=== PATIENT | female | born 1960 | race Caucasian/White ===

== ENCOUNTER 2018-01-10 12:17 | Emergency (ER) | payer MEDICAID, OTHER ==
--- NOTE | 2018-01-10 12:42 | EDPHY ---
H & P Time Seen by Provider: 01/10/18 12:38 HPI/ROS: CHIEF COMPLAINT: Medication refill request HISTORY OF PRESENT ILLNESS: Patient is from [place] and here without her psychiatric medication requesting medication refills. She is requesting refill of Seroquel and Elavil. She denies any suicidal or homicidal ideation. She does report increased anxiety. She has been out of her medication for a few days. ROS As detailed in HPI Smoking Status: Never smoked Physical Exam: General: Alert and oriented. Nontoxic appearing. No acute distress HEENT: Pupils PERRLA. No oral lesions. Cardiopulmonary: Regular rate and rhythm. No lower extremity edema Skin: [place] warm and dry. No lesions. Muscle skeletal: Moving all 4 extremities. Equal strength in upper extremities and lower extremities. Ambulatory. Constitutional: Initial Vital Signs Temperature (C) 36.4 C 01/10/18 12:31 Heart Rate 87 01/10/18 12:31 Respiratory Rate 18 01/10/18 12:31 Blood Pressure 135/113 H 01/10/18 12:31 O2 Sat (%) 96 01/10/18 12:31 O2 Delivery Mode Room Air Allergies/Adverse Reactions: No Known Allergies Allergy (Unverified 01/10/18 12:35) Home Medications: Medication Instructions Recorded Amitriptyline HCl [Elavil 100 MG 100 mg PO HS #30 tab 01/10/18 (*)] Elavil 01/10/18 Quetiapine Fumarate [Seroquel] 800 mg PO DAILY #60 tablet 01/10/18 Seroquel 01/10/18 hydrOXYzine HCL [hydrOXYzine HCL 25 mg PO Q6 #12 tab 01/10/18 (RX)] Medical Decision Making ED Course/Re-evaluation: Patient here requesting refill for psychiatric medications. She was prescribed her known doses which she provides the bottle of. Indications for ER return or discussed. She was referred to outpatient therapy. Departure - Departure Disposition: Home, Routine, Self-Care Clinical Impression: Medication refill Condition: Good Instructions: Bipolar Disorder (ED) Referrals: NONE *PRIMARY CARE P,. [Primary Care Provider] - As per Instructions [facility],. [Clinic] - As per Instructions Prescriptions: Amitriptyline HCl [Elavil 100 MG (*)] 100 mg PO HS #30 tab hydrOXYzine HCL [hydrOXYzine HCL (RX)] 25 mg PO Q6 #12 tab Quetiapine Fumarate [Seroquel] 800 mg PO DAILY #60 tablet
[2018-01-10 12:54] VITALS: BP 149/102
== END 2018-01-10 12:55 | disposition home or self-care (01) ==
DX: Z76.0 Encounter for issue of repeat prescription (principal); F41.9 Anxiety disorder, unspecified

== ENCOUNTER 2018-01-16 20:27 | Emergency (ER) | payer MEDICAID ==
[2018-01-16] MEDS ORDERED: PANTOPRAZOLE SODIUM 40 MG VIAL IVP ONE (20:35)
[2018-01-16] MEDS ORDERED: HYOSCYAMINE SULFATE 0.125 MG TAB PO ONE (20:35)
[2018-01-16] MEDS ORDERED: LIDOCAINE 2% VISCOUS 15 ML UDCUP PO ONE (20:35)
[2018-01-16] MEDS ORDERED: NS 1,000 ML IV ONE (20:35)
[2018-01-16] MEDS ORDERED: PROMETHAZINE HCL 25 MG/ML INJ IVP ONE (20:35)
[2018-01-16] MEDS ORDERED: MAG HYDROX/AL HYDROX/SIMETH 30 ML UDCUP PO ONE (20:35)
[2018-01-16] MEDS ORDERED: FAMOTIDINE 20 MG/NACL 50 ML IV ONE (20:35)
[2018-01-16] MEDS ORDERED: LORazepam 2 MG/ML INJ IVP ONE (20:36)
--- NOTE | 2018-01-16 20:36 | EDPHY ---
H & P Stated Complaint: Vomitting blood, mid abd pain, has stomach ulcer- no meds Source: Patient Exam Limitations: No limitations - Personal History Current Tetanus Diphtheria and Acellular Pertussis (TDAP): No - Medical/Surgical History Hx Asthma: No Hx Chronic Respiratory Disease: No Hx Diabetes: No Hx Cardiac Disease: No Hx Renal Disease: No Hx Cirrhosis: No Hx Alcoholism: No Hx HIV/AIDS: No Hx Splenectomy or Spleen Trauma: No Other PMH: Bipolar, IBS - Social History Smoking Status: Never smoked Time Seen by Provider: 01/16/18 20:33 HPI/ROS: HPI: This is a 57-year-old female who presents with Chief Complaint: Vomiting blood, mid abd pain, has stomach ulcer- no meds Location: Epigastric and periumbilical area Quality: Pain Duration: 1 day Signs and Symptoms: no fever, no nausea, + vomiting, + blood tinged vomit, no blood in stool, no abdominal bloating, no diarrhea, no back pain, no urinary symptoms, no vaginal bleeding/discharge, no indigestion, no chest pain, no shortness of breath Timing: Acute Severity: Moderate Context: Patient has a history of bipolar disorder, irritable bowel syndrome, stomach ulcer diagnosed as a child presents yelling and crying while walking back from triage into the ER room. Patient reports that she is extremely stressed out taking care of her doctor mother who has Alzheimer's dementia. She reports that she " just can't get the stress under control today." She takes Pepcid as needed. She reports that she has felt nauseous and has vomited approximately 2-5 times today she reports that she saw a blood tinged. Vomit she complains of epigastric and periumbilical abdominal pain that is severe and constant in nature. She has loose stools every day which is baseline for her. She denies any abdominal surgery history. She has no food intolerance, indigestion, recent alcohol or NSAID use. Modifying Factors: None Comment: ROS: A comprehensive 10 system review of systems is otherwise negative aside from elements mentioned in the history of present illness. MEDICAL/SURGICAL/SOCIAL HISTORY: Medical history: Bipolar, irritable bowel syndrome, stomach ulcer Surgical history: Denies Social history: Nonsmoker. Family history noncontributory. CONSTITUTIONAL: Patient is extremely anxious and speaking loudly and thrashing around in the room, awake and alert, no obvious distress HEENT: Atraumatic and normocephalic, PERRL, EOMI. Nares patent; no rhinorrhea; no nasal mucosal edema. Tympanic membranes clear. Oropharynx clear, no exudate and moist pink mucosa. Airway patent. No lymphadenopathy. No meningismus. Cardiovascular: Normal S1/S2, regular rate, regular rhythm, without murmur rub or gallop. PULMONARY/CHEST: Symmetrical and nontender. Clear to auscultation bilaterally. Good air movement. No accessory muscle usage. ABDOMEN: Soft, obesely rounded, epigastric and periumbilical reproducible tenderness, no rebound, + guarding, no peritoneal signs, no masses or organomegaly. No CVAT. Sounds heard x4 quadrants. EXTREMITIES: 2/2 pulses, strength 5/5, no deformities, no clubbing, no cyanosis or edema. NEUROLOGICAL: no focal neuro deficits. GCS 15. SKIN: Warm and dry, no erythema. no rash. Good capillary refill. (Ramandeep Santiago) Constitutional: Initial Vital Signs Temperature (C) 36.8 C 01/16/18 20:29 Heart Rate 97 01/16/18 20:29 Respiratory Rate 18 01/16/18 20:29 Blood Pressure 137/55 H 01/16/18 20:29 O2 Sat (%) 94 01/16/18 20:29 O2 Delivery Mode Room Air Allergies/Adverse Reactions: No Known Allergies Allergy (Unverified 01/16/18 20:29) Home Medications: Medication Instructions Recorded Amitriptyline HCl [Elavil 100 MG 100 mg PO HS #30 tab 01/10/18 (*)] Elavil 01/10/18 Quetiapine Fumarate [Seroquel] 800 mg PO DAILY #60 tablet 01/10/18 Seroquel 01/10/18 hydrOXYzine HCL [hydrOXYzine HCL 25 mg PO Q6 #12 tab 01/10/18 (RX)] Dicyclomine [Bentyl 10 MG (*)] 10 mg PO TID PRN #10 cap 01/16/18 Ondansetron Odt [Zofran Odt 4 mg 4 mg PO Q4 PRN #12 tab 01/16/18 (*)] Pantoprazole Sodium [Protonix 40mg 40 mg PO DAILY #14 tab 10/18/18 (*)] Medical Decision Making ED Course/Re-evaluation: Vital signs reviewed and stable upon arrival. Laboratory studies, IV fluids, IV medications, CT abdomen and pelvis scan ordered Patient given IV Protonix, IV Pepcid, IV Ativan and GI cocktail 2220: Labs reviewed. No signs of anemia/platelet dysfunction/RAHUL/elevated LFTs /electrolyte imbalance/pancreatitis. Mild leukocytosis of 12 K noted. Called by Radiology CT abdomen and pelvis scan shows Nonspecific thickening of the transverse duodenum and ligament of [place] region of the jejunum. 2. Distal colon suspicious for remote colitis. 2240: Reassessed patient and abdomen soft and nontender. Passed p.o. Trial without any difficulty. Suspect anxiety, gastritis, irritable bowel syndrome. Referral to Gastroenterology with prescription for Protonix and Bentyl. This patient was seen under the supervision of my secondary supervising physician. I evaluated care for this patient independently. Discussed this patient with Dr. Robison. (Ramandeep Santiago) Differential Diagnosis: Abdominal pain including but not limited to appendicitis, cholecystitis, gastritis and urinary tract infection. (Ramandeep Santiago) Other Provider: The patient was evaluated and managed by the Physician Neighborhood Conservation Officer. I did not discuss this patient's presentation with the midlevel provider. I did review the charts and evaluation as documented. My co-signature indicates that I have reviewed this chart and I agree with the findings and plan of care as documented. I am the secondary supervising physician. (Rosa Robison) - Data Points Laboratory Results: Laboratory Results 01/16/18 20:35 01/16/18 20:35 Medications Given: Discontinued Medications Al Hydroxide/Mg Hydroxide (Maalox Susp) 30 ml PO ONCE ONE Stop: 01/16/18 20:36 Last Admin: 01/16/18 21:01 Dose: 30 ml Hyoscyamine Sulfate (Levsin, Hyomax-Sl) 0.25 mg PO ONCE ONE Stop: 01/16/18 20:36 Last Admin: 01/16/18 21:01 Dose: 0.25 mg Sodium Chloride (Ns) 1,000 mls @ 0 mls/hr IV EDNOW ONE; Wide Open PRN Reason: Protocol Stop: 01/16/18 20:36 Last Admin: 01/16/18 21:51 Dose: 1,000 mls Famotidine/Sodium Chloride (Pepcid 20 Mg (Premix)) 50 mls @ 200 mls/hr IV EDNOW ONE Stop: 01/16/18 20:49 Last Admin: 01/16/18 21:58 Dose: 50 mls Lidocaine (Lidocaine 2% Viscous) 15 ml PO ONCE ONE Stop: 01/16/18 20:36 Last Admin: 01/16/18 21:01 Dose: 15 ml Lorazepam (Ativan Injection) 1 mg IVP EDNOW ONE Stop: 01/16/18 20:37 Last Admin: 01/16/18 21:56 Dose: 1 mg Pantoprazole Sodium (Protonix) 40 mg IVP ONCE ONE Stop: 01/16/18 20:36 Last Admin: 01/16/18 22:34 Dose: 40 mg Promethazine HCl (Phenergan) 12.5 mg IVP EDNOW ONE Stop: 01/16/18 20:36 Last Admin: 01/16/18 21:52 Dose: 12.5 mg Departure - Departure Disposition: Home, Routine, Self-Care Clinical Impression: IBS (irritable bowel syndrome) Condition: Good Instructions: Gastritis (ED), Irritable Bowel Syndrome (ED) Additional Instructions: Consume a minimum of 8-10 glasses of water or electrolyte fluid replacement drinks that include Gatorade, Powerade, Pedialyte. Eat a bland diet for the next 48 hours and then slowly advance as tolerated. Take Zofran 1 tab every 4 hours as needed for nausea, vomiting. Take Protonix daily. Take Bentyl 3 times a day as needed for GI distress. Please refrain from using NSAIDs like ibuprofen, Advil, Motrin. Follow-up with Gastroenterology in the next 1-2 weeks. Return to the Emergency Room if symptoms do not resolve in the next 48-72 hours , you spike a fever > 102 F, or experience intractable abdominal pain/nausea/ vomiting. Referrals: Jonel Cash MD, FACG [Medical Doctor] - As per Instructions Prescriptions: Dicyclomine [Bentyl 10 MG (*)] 10 mg PO TID PRN #10 cap PRN Reason: Gi Distress Ondansetron Odt [Zofran Odt 4 mg (*)] 4 mg PO Q4 PRN #12 tab PRN Reason: Nausea/Vomiting, Use 1st Pantoprazole Sodium [Protonix 40mg (*)] 40 mg PO DAILY #14 tab
[2018-01-16] MEDS ORDERED: IOPAMIDOL (ISOVUE-300) 100 ML BTL ONE (21:02)
[2018-01-16 21:44] LABS: PLATELET COUNT 236 10^3/uL (150-400)
[2018-01-16] MEDS ORDERED: PANTOPRAZOLE SODIUM 40 MG VIAL ONE (22:32)
[2018-01-16 23:08] VITALS: BP 123/76
[2018-01-17] MEDS ORDERED: PANTOPRAZOLE SODIUM 40 MG VIAL IVP ONE (20:35)
== END 2018-01-16 23:08 | disposition home or self-care (01) ==
DX: K58.9 Irritable bowel syndrome, unspecified (principal); K92.0 Hematemesis; F31.9 Bipolar disorder, unspecified
CPT/HCPCS: 96365; 96366; J2060; J2550; Q9967

== ENCOUNTER 2018-01-23 13:30 | Emergency (ER) | payer MEDICAID ==
[2018-01-23 13:36] VITALS: BP 144/131
--- NOTE | 2018-01-23 13:51 | EDPHY ---
H & P Stated Complaint: PS med refill Time Seen by Provider: 01/23/18 13:40 HPI/ROS: CHIEF COMPLAINT: Medication refill HISTORY OF PRESENT ILLNESS: The patient is a 57-year-old female who recently moved here from [place]. She has a history of bipolar and IBS. She states that she does not have a psychiatrist in the area yet. She is here requesting refills of her Elavil and Seroquel. She was here 2 weeks ago with the same request. At that time she was written for 30 tablets of Elavil and 60 tablets of Seroquel. She states however that she took this to the pharmacy and they would only fill 5 days worth. She is not having any new or worsening symptoms. She is not suicidal. No fevers or illness. Severity: None Modifying factors: None REVIEW OF SYSTEMS: Constitutional: denies: chills, fever, recent illness, recent injury EENTM: denies: blurred vision, double vision, nose congestion Respiratory: denies: cough, shortness of breath Cardiac: denies: chest pain, irregular heart rate, lightheadedness, palpitations Gastrointestinal/Abdominal: denies: abdominal pain, diarrhea, nausea, vomiting, blood streaked stools Genitourinary: denies: dysuria, frequency, hematuria, pain Musculoskeletal: denies: joint pain, muscle pain Skin: denies: lesions, rash, jaundice, bruising Neurological: denies: headache, numbness, paresthesia, tingling, dizziness, weakness Hematologic/Lymphatic: denies: blood clots, easy bleeding, easy bruising Immunologic/allergic: denies: HIV/AIDS, transplant 10 systems reviewed and negative except as noted EXAM: GENERAL: Well-appearing, well-nourished and in no acute distress. HEAD: Atraumatic, normocephalic. EYES: Pupils equal round and reactive to light, extraocular movements intact, sclera anicteric, conjunctiva are normal. ENT: TMs normal, nares patent, oropharynx clear without exudates. Moist mucous membranes. NECK: Normal range of motion, supple without lymphadenopathy or JVD. LUNGS: Breath sounds clear to auscultation bilaterally and equal. No wheezes rales or rhonchi. HEART: Regular rate and rhythm without murmurs, rubs or gallops. ABDOMEN: Soft, nontender, normoactive bowel sounds. No guarding, no rebound. No masses appreciated. BACK: No CVA tenderness, no spinal tenderness, step-offs or deformities EXTREMITIES: Normal range of motion, no pitting or edema. No clubbing or cyanosis. NEUROLOGICAL: Cranial nerves II through XII grossly intact. Normal speech, normal gait. 5/5 strength, normal movement in all extremities, normal sensation , normal reflexes PSYCH: Normal mood, normal affect. SKIN: Warm, dry, normal turgor, no visible rashes or lesions. Source: Patient, Family Exam Limitations: No limitations - Personal History Current Tetanus/Diphtheria Vaccine: No - Medical/Surgical History Hx Asthma: No Hx Chronic Respiratory Disease: No Hx Diabetes: No Hx Cardiac Disease: No Hx Renal Disease: No Hx Cirrhosis: No Hx Alcoholism: No Hx HIV/AIDS: No Hx Splenectomy or Spleen Trauma: No Other PMH: Bipolar, IBS - Family History Significant Family History: No pertinent family hx - Social History Smoking Status: Never smoked Alcohol Use: Sober Drug Use: None Constitutional: Initial Vital Signs Temperature (C) 36.6 C 01/23/18 13:34 Heart Rate 93 01/23/18 13:34 Respiratory Rate 18 01/23/18 13:34 Blood Pressure 144/131 H 01/23/18 13:34 O2 Sat (%) 93 01/23/18 13:34 O2 Delivery Mode Room Air Allergies/Adverse Reactions: No Known Allergies Allergy (Unverified 01/23/18 13:36) Home Medications: Medication Instructions Recorded Amitriptyline HCl [Elavil 100 MG 100 mg PO HS #30 tab 01/10/18 (*)] Elavil 01/10/18 Quetiapine Fumarate [Seroquel] 800 mg PO DAILY #60 tablet 01/10/18 Seroquel 01/10/18 hydrOXYzine HCL [hydrOXYzine HCL 25 mg PO Q6 #12 tab 01/10/18 (RX)] Dicyclomine [Bentyl 10 MG (*)] 10 mg PO TID PRN #10 cap 01/16/18 Ondansetron Odt [Zofran Odt 4 mg 4 mg PO Q4 PRN #12 tab 01/16/18 (*)] Pantoprazole Sodium [Protonix 40mg 40 mg PO DAILY #14 tab 01/16/18 (*)] Omeprazole 40 mg PO HS #30 capsule. 01/23/18 Medical Decision Making ED Course/Re-evaluation: 1:50 p.m. we are calling pharmacy to verify whether or not they filled her complete prescription. She should not need a refill at this time. I will also refer her to [facility] where she can see a prescriber sooner. 2:00 p.m. We called and spoke to Sharath. They report that they did did not completely fill the patient's medication 2 weeks ago because she had overlapping prescriptions and it was too early for insurance reasons. Now however it should be available and they have the prescriptions on file. I do not need write her new prescriptions. The patient understands this plan and declines further treatment. She is eager to go. 2:20 p.m. the patient is requesting a prescription for omeprazole so that insurance will cover it. Differential Diagnosis: Partial list of the Differential diagnosis considered include but were not limited to; bipolar, medication refill, diversion and although unlikely based on the history and physical exam, I also considered anxiety reaction, infection. I discussed these differential diagnoses and the plan with the patient as well as the usual and expected course. The patient understands that the diagnosis is provisional and that in medicine we are not always correct and that further workup is often warranted. Usual and customary warnings were given. All of the patient's questions were answered. The patient was instructed to return to the emergency department should the symptoms at all worsen or return, otherwise to followup with the physician as we discussed. Departure - Departure Disposition: Home, Routine, Self-Care Clinical Impression: Medication refill Condition: Good Instructions: Medicine Refill (ED) Referrals: NONE *PRIMARY CARE P,. [Primary Care Provider] - As per Instructions [facility],. [Clinic] - As per Instructions Prescriptions: Omeprazole 40 mg PO HS #30 capsule.
== END 2018-01-23 14:23 | disposition home or self-care (01) ==
DX: Z76.0 Encounter for issue of repeat prescription (principal); F31.9 Bipolar disorder, unspecified; K58.9 Irritable bowel syndrome, unspecified

== ENCOUNTER 2018-02-10 11:03 | Emergency (ER) | payer MEDICAID ==
[2018-02-10 11:17] VITALS: BP 137/96
--- NOTE | 2018-02-10 11:51 | EDPHY ---
H & P Stated Complaint: psych med refill Time Seen by Provider: 02/10/18 11:33 - Personal History Current Tetanus/Diphtheria Vaccine: Unsure Current Tetanus Diphtheria and Acellular Pertussis (TDAP): Unsure - Medical/Surgical History Hx Asthma: No Hx Chronic Respiratory Disease: No Hx Diabetes: No Hx Cardiac Disease: No Hx Renal Disease: No Hx Cirrhosis: No Hx Alcoholism: No Hx HIV/AIDS: No Hx Splenectomy or Spleen Trauma: No Other PMH: Bipolar, IBS - Social History Smoking Status: Current every day smoker Constitutional: Initial Vital Signs Temperature (C) 36.7 C 02/10/18 11:15 Heart Rate 86 02/10/18 11:15 Respiratory Rate 16 02/10/18 11:15 Blood Pressure 137/96 H 02/10/18 11:15 O2 Sat (%) 96 02/10/18 11:15 O2 Delivery Mode Room Air Allergies/Adverse Reactions: No Known Allergies Allergy (Unverified 02/10/18 11:13) Home Medications: Medication Instructions Recorded Amitriptyline HCl [Elavil 100 MG 100 mg PO HS #30 tab 01/10/18 (*)] Elavil 01/10/18 Quetiapine Fumarate [Seroquel] 800 mg PO DAILY #60 tablet 01/10/18 Seroquel 01/10/18 Dicyclomine [Bentyl 10 MG (*)] 10 mg PO TID PRN #10 cap 01/16/18 Ondansetron Odt [Zofran Odt 4 mg 4 mg PO Q4 PRN #12 tab 01/16/18 (*)] Omeprazole 40 mg PO HS #30 john. 01/23/18 Amitriptyline HCl [Elavil 100 MG 100 mg PO HS #30 tab 02/10/18 (*)] Medical Decision Making ED Course/Re-evaluation: CHIEF COMPLAINT: Psych medication refill HISTORY OF PRESENT ILLNESS: The patient is a 57 y/o female with a history of bipolar disorder requesting psych medication refill. She reports that she sees a psychiatrist in [place] but has been staying with her elderly parents who have Alzheimer for the last several weeks. Since she has been in [place], she has run out of Elavil , which she takes daily. No headache, chest pain, shortness of breath, abdominal pain, urinary or bowel complaints, numbness, paresthesias, fevers. REVIEW OF SYSTEMS: A comprehensive 10 system review of systems is otherwise negative aside from elements mentioned in the history of present illness and medical decision making. PHYSICAL EXAM: HR, BP, O2 Sat, RR. Temp noted General Appearance: Alert, well hydrated, appropriate, and non-toxic appearing. Head: Atraumatic without scalp tenderness or obvious injury Eyes: Pupils equal, round, reactive to light and accommodation, EOMI, no trauma , no injection. Ears: Clear bilaterally, no perforation, normal landmarks Nose: Atraumatic, no rhinorrhea, clear. Throat: There is no erythema or exudates, no lesions, normal tonsils, mucus membranes moist. Neck: Supple, 2+ carotid upstroke, nontender, no lymphadenopathy. Respiratory: No retractions, no distress, no wheezes, and no accessory muscle use. Lungs are clear to auscultation bilaterally. Cardiovascular: Regular rate and rhythm, no murmurs, rubs, or gallops. Bilateral carotid, radial, dorsalis pedis, and posterior tibial pulses intact. Good capillary refill all extremities. Gastrointestinal: Abdomen is soft, nontender, non-distended, no masses, no rebound, no guarding, no peritoneal signs. Musculoskeletal: Normal active ROM of all extremities, atraumatic. Neurological: Alert, appropriate, and interactive. The patient has normal DTRs and non-focal cranial nerves, motor, sensory, and cerebellar exam. Skin: No rashes, good turgor, no nodules on palpation. Past medical history: Bipolar disorder, IBS Past surgical history: Denies Family history: Denies Social history: Lives in [place], , not employed DIAGNOSTICS/PROCEDURES/CRITICAL CARE TIME: Not indicated DIFFERENTIAL DIAGNOSIS: The differential diagnosis for the patient's mental status included but was not limited to medication noncompliance, functional and major depression, situational depression, medication side effect, drugs, and alcohol abuse. MEDICAL DECISION MAKING: The patient is a 57 y/o female with a history of bipolar disorder requesting an Elavil refill, as she has run out while caring for her elderly parents. I will fill this patient's Elavil and have advised her to follow up with her mental health provider. Return precautions provided; patient is comfortable with this plan. Departure - Departure Disposition: Home, Routine, Self-Care Clinical Impression: Medication refill Condition: Good Instructions: Medicine Refill (ED) Additional Instructions: 1. Take Elavil as prescribed. 2. Follow-up with your mental health provider as directed. 3. Return to the ED for thoughts of self-harm, racing thoughts or other concerns. Referrals: [facility],. [Clinic] - As per Instructions Prescriptions: Amitriptyline HCl [Elavil 100 MG (*)] 100 mg PO HS #30 tab Report Scribed for: Chet Harris Report Scribed by: Sruthi Khan Date of Report: 02/10/18 Time of Report: 11:52
== END 2018-02-10 12:05 | disposition home or self-care (01) ==
DX: F31.9 Bipolar disorder, unspecified (principal); Z79.899 Other long term (current) drug therapy; F17.200 Nicotine dependence, unspecified, uncomplicated

== ENCOUNTER 2018-05-24 14:48 | Emergency (ER) | payer MEDICAID, OTHER ==
--- NOTE | 2018-05-24 15:08 | EDPHY ---
H & P Stated Complaint: pt here helping mother/has run out of elavil and seroquel has appt 05/27 Time Seen by Provider: 05/24/18 15:04 HPI/ROS: HPI: This is a 57-year-old female who presents with Chief Complaint: pt here helping mother/has run out of Elavil and Seroquel has appt 05/27 Location: psych Quality: Request of psychiatric medication refill Duration: Signs and Symptoms: No suicidal ideation, no homicidal ideation, no paranoia, no hallucinations Timing: Acute on chronic Severity: Mild Context: Patient has a history of bipolar, irritable bowel syndrome, anxiety presents with request of psychiatric medication refill. She reports that she ran out of Elavil and Seroquel. She normally takes Elavil 100 mg and Seroquel 800 mg daily. Patient is in the area helping her mother. She shows me as she that has [facility] counselor appointment on May 27 and psychiatrist appointment on July 04. Modifying Factors: None Comment: ROS: A comprehensive 10 system review of systems is otherwise negative aside from elements mentioned in the history of present illness. MEDICAL/SURGICAL/SOCIAL HISTORY: Medical history: Bipolar, IBS, anxiety Surgical history: Denies Social history: Current every day smoker. Family history noncontributory. CONSTITUTIONAL: Slightly anxious middle-aged white female, awake and alert, no obvious distress HEENT: Atraumatic and normocephalic, PERRL, EOMI. Nares patent; no rhinorrhea; no nasal mucosal edema. Tympanic membranes clear. Oropharynx clear, no exudate and moist pink mucosa. Airway patent. No lymphadenopathy. No meningismus. Cardiovascular: Normal S1/S2, regular rate, regular rhythm, without murmur rub or gallop. PULMONARY/CHEST: Symmetrical and nontender. Clear to auscultation bilaterally. Good air movement. No accessory muscle usage. ABDOMEN: Soft, nondistended, nontender, no rebound, no guarding, no peritoneal signs, no masses or organomegaly. No CVAT. EXTREMITIES: 2/2 pulses, strength 5/5, no deformities, no clubbing, no cyanosis or edema. NEUROLOGICAL: no focal neuro deficits. GCS 15. SKIN: Warm and dry, no erythema. no rash. Good capillary refill. Source: Patient, Old records Exam Limitations: No limitations - Personal History Current Tetanus Diphtheria and Acellular Pertussis (TDAP): No - Medical/Surgical History Hx Asthma: No Hx Chronic Respiratory Disease: No Hx Diabetes: No Hx Cardiac Disease: No Hx Renal Disease: No Hx Cirrhosis: No Hx Alcoholism: No Hx HIV/AIDS: No Hx Splenectomy or Spleen Trauma: No Other PMH: Bipolar, IBS anxiety - Social History Smoking Status: Current every day smoker Constitutional: Initial Vital Signs Temperature (C) 36.5 C 05/24/18 14:53 Heart Rate 91 05/24/18 14:53 Respiratory Rate 17 05/24/18 14:53 Blood Pressure 133/101 H 05/24/18 14:53 O2 Sat (%) 98 05/24/18 14:53 O2 Delivery Mode Room Air Allergies/Adverse Reactions: No Known Allergies Allergy (Verified 05/24/18 14:49) Home Medications: Medication Instructions Recorded Amitriptyline HCl [Elavil 100 MG 100 mg PO HS #30 tab 01/10/18 (*)] Elavil 01/10/18 Quetiapine Fumarate [Seroquel] 800 mg PO DAILY #60 tablet 01/10/18 Seroquel 01/10/18 Dicyclomine [Bentyl 10 MG (*)] 10 mg PO TID PRN #10 cap 01/16/18 Ondansetron Odt [Zofran Odt 4 mg 4 mg PO Q4 PRN #12 tab 01/16/18 (*)] Omeprazole 40 mg PO HS #30 capsule. 01/23/18 Amitriptyline HCl [Elavil 100 MG 100 mg PO HS #30 tab 02/10/18 (*)] Amitriptyline HCl [Elavil 100 MG 100 mg PO HS #60 tab 02/24/18 (*)] Omeprazole 40 mg PO DAILY #30 capsule. 02/24/18 Quetiapine Fumarate [Seroquel] 800 mg PO DAILY #60 tablet 02/24/18 Amitriptyline HCl [Elavil 100 MG 100 mg PO HS #7 tab 05/24/18 (*)] Quetiapine Fumarate [Seroquel Xr] 800 mg PO DAILY 7 Days tab.sr.24h 05/24/18 Medical Decision Making ED Course/Re-evaluation: Vital signs reviewed and show mildly elevated blood pressure upon arrival. Does not meet M1 hold or MIH criteria Case management consult. Estefany confirmed patient's appointment date and time with [facility]. They will try to get patient in next week. She arranged follow-up appointment at the [facility] [place] to establish care. Patient has been given 7 days of Elavil 100 mg daily and Seroquel 100 mg daily. This patient was seen under the supervision of my secondary supervising physician. I evaluated care for this patient with attending. Discussed this patient with Dr. Harris. Differential Diagnosis: Differential diagnosis includes but is not limited to major depression, anxiety disorder, schizophrenia, bipolar disorder, intoxicant use, suicidal ideation, psychosis, jamia. Departure - Departure Disposition: Home, Routine, Self-Care Clinical Impression: Has run out of medications Condition: Good Instructions: Bipolar Disorder (ED) Referrals: [facility],. [Clinic] - As per Instructions [facility],. [Clinic] - As per Instructions Prescriptions: Amitriptyline HCl [Elavil 100 MG (*)] 100 mg PO HS #7 tab Quetiapine Fumarate [Seroquel Xr] 800 mg PO DAILY 7 Days tab.sr.24h
[2018-05-24 16:17] VITALS: BP 130/98
--- NOTE | 2018-05-24 17:29 | ASMTCMCOM ---
CM Note CM Note Notes: Pt presented to the ED through triage for refill Rxns for her Seroquel and Elavil. This is the pt's 5th ED visit for the same reason since 01/10/18. Pt states she has completed the initial assessment [facility] and has an appt w/ a therapist at [facility] on 05/27/18 but that the earliest appt w/a prescriber is not until 07/04/18; pt presented [facility] paperwork that showed the upcoming appts. Pt states she recently moved to [place] from [place] in Dec 2017 to help care for her mother who has Alzheimer's; pt is living with her mother and father. Pt states her psychiatrist in [facility] was able to call in refills a couple of times but now he is not able/willing to continue doing so. Pt was last seen in the ED on 02/24/18 and she was provided 2 months worth of Seroquel and Elavil Rxns. Pt states she was also able to get through the past month or so because she was able to get back to [facility] and retrieve her previously filled supply of her medications. CM called [facility] at [facility] ([phone]) and spoke w/Lucie. Pt spoke w/Lucie and gave verbal permission for Lucie to discuss pt's care with this CM. Spoke w/Lucie and explained that the ED provider would only be willing to provide the pt w/one week's worth of her Rxns due to pt's frequent ED visits specifically for med refills. Lucie states she will e-mail pt's assigned therapist and psychiatric practitioner and see if they can expedite providing additional Rxn refills for the pt this upcoming week. Pt states she is already established w/[facility] and is followed by D[facility] Garcia. Lucie also states she will request that PC provide additional bridge Rxns for the patient until she can see a prescriber. Pt was frustrated intermittently throughout the ED visit but overall pt was agreeable to this plan and appreciative of assistance. This CM to follow-up w/[facility], [facility] and the pt on Saturday re:pt's outpatient follow-up / POC. Date Signed: 05/24/2018 05:28 PM Electronically Signed By:Estefany Sebastian RN
== END 2018-05-24 16:10 | disposition home or self-care (01) ==
DX: Z76.0 Encounter for issue of repeat prescription (principal)

== ENCOUNTER 2018-07-11 09:29 | Emergency (ER) | payer MEDICAID ==
--- NOTE | 2018-07-11 09:41 | EDPHY ---
H & P Stated Complaint: IBS flare up Time Seen by Provider: 07/11/18 09:40 HPI/ROS: HPI: This is a 57-year-old female who presents with Chief Complaint: No bowel movement x3 days Location: GI Quality: Constipation Duration: 3 days Signs and Symptoms: no fever, + nausea, + vomiting, no hematemesis, no blood in stool, no abdominal bloating, no diarrhea, no back pain, no urinary symptoms, no vaginal bleeding/discharge, no indigestion, no chest pain, no shortness of breath Timing: Gradual onset Severity: [id number] Context: Patient has a history of bipolar disease, takes Seroquel 100 mg daily , has a history of constipation, presents with complaints of no bowel movement x3 days. She reports that she sat on the toilet for approximately an hour and half this morning and tried to strain but only had small amount of so hard stool "come out." She tried [id number] Ex-Lax and "some other medication but it did not work." She is requesting an enema. She reports that she feels nauseous and vomited yesterday. History of , irritable bowel syndrome and ovarian cyst. Modifying Factors: Cofw-[id number] remedies Comment: ROS: A comprehensive 10 system review of systems is otherwise negative aside from elements mentioned in the history of present illness. MEDICAL/SURGICAL/SOCIAL HISTORY: Medical history: Bipolar disorder, anxiety disorder, irritable bowel syndrome Surgical history: Denies Social history: Disabled. Heavy smoker. Family history noncontributory. CONSTITUTIONAL: Overweight, nontoxic-appearing, talkative middle-aged white female, awake and alert, no obvious distress HEENT: Atraumatic and normocephalic, PERRL, EOMI. Nares patent; no rhinorrhea; no nasal mucosal edema. Tympanic membranes clear. Oropharynx clear, no exudate and moist pink mucosa. Airway patent. No lymphadenopathy. No meningismus. Cardiovascular: Normal S1/S2, regular rate, regular rhythm, without murmur rub or gallop. PULMONARY/CHEST: Symmetrical and nontender. Clear to auscultation bilaterally. Good air movement. No accessory muscle usage. ABDOMEN: Soft, protuberant, mild generalized tenderness, no rebound, no guarding, no peritoneal signs, no masses or organomegaly. No CVAT. Bowel sounds heard x4 quadrants. EXTREMITIES: 2/2 pulses, strength 5/5, no deformities, no clubbing, no cyanosis or edema. NEUROLOGICAL: no focal neuro deficits. GCS 15. SKIN: Warm and dry, no erythema. no rash. Good capillary refill. Source: Patient, Old records Exam Limitations: No limitations - Personal History Current Tetanus/Diphtheria Vaccine: No - Medical/Surgical History Hx Asthma: No Hx Chronic Respiratory Disease: No Hx Diabetes: No Hx Cardiac Disease: No Hx Renal Disease: No Hx Cirrhosis: No Hx Alcoholism: No Hx HIV/AIDS: No Hx Splenectomy or Spleen Trauma: No Other PMH: Bipolar, IBS anxiety - Social History Smoking Status: Heavy smoker Constitutional: Initial Vital Signs Temperature (C) 36.3 C 07/11/18 09:36 Heart Rate 88 07/11/18 09:36 Respiratory Rate 18 07/11/18 09:36 Blood Pressure 123/89 H 07/11/18 09:36 O2 Sat (%) 95 07/11/18 09:36 O2 Delivery Mode Room Air Allergies/Adverse Reactions: No Known Allergies Allergy (Verified 07/11/18 09:39) Home Medications: Medication Instructions Recorded Amitriptyline HCl [Elavil 100 MG 100 mg PO HS #30 tab 01/10/18 (*)] Elavil 01/10/18 Quetiapine Fumarate [Seroquel] 800 mg PO DAILY #60 tablet 01/10/18 Seroquel 01/10/18 Dicyclomine [Bentyl 10 MG (*)] 10 mg PO TID PRN #10 cap 01/16/18 Ondansetron Odt [Zofran Odt 4 mg 4 mg PO Q4 PRN #12 tab 01/16/18 (*)] Omeprazole 40 mg PO HS #30 capsule. 01/23/18 Amitriptyline HCl [Elavil 100 MG 100 mg PO HS #30 tab 02/10/18 (*)] Amitriptyline HCl [Elavil 100 MG 100 mg PO HS #60 tab 02/24/18 (*)] Omeprazole 40 mg PO DAILY #30 capsule. 02/24/18 Quetiapine Fumarate [Seroquel] 800 mg PO DAILY #60 tablet 02/24/18 Amitriptyline HCl [Elavil 100 MG 100 mg PO HS #7 tab 05/24/18 (*)] Quetiapine Fumarate [Seroquel Xr] 800 mg PO DAILY 7 Days tab.sr.24h 05/24/18 Ondansetron Odt [Zofran Odt 4 mg 4 mg PO Q4 PRN #12 tab 07/11/18 (*)] Polyethylene Glycol 3350 [Miralax 17 gm PO DAILY #30 pkt 07/11/18 17 gm (*)] Medical Decision Making - Diagnostics Imaging Results: Imaging Impressions Abdomen X-Ray 07/11/18 09:44 Impression: Constipation. ED Course/Re-evaluation: Vital signs reviewed and stable upon arrival. Abdomen is mildly tender with no peritoneal signs. Doubt surgical process. Abdominal x-ray ordered and my read shows moderate stool burden especially in the rectal vault Patient given p.o. Zofran, p.o. Promethazine, glycerin suppository and magnesium citrate 1015: Reassessed patient who reports that she went to the bathroom and had a large bowel movement. Patient asking for pain medications. I advised her that opiates are not indicated as she is constipated and this can worsen her condition. 1037: Patient has having anxiety panic attack. Given IM Haldol 2.5 mg and IM Benadryl 25 mg with complete relief of symptoms. Patient will be discharged home with Zofran and [id number] MiraLax This patient was seen under the supervision of my secondary supervising physician. I evaluated care for this patient with attending. Differential Diagnosis: Differential diagnosis includes but is not limited to constipation, rectal impaction, ileus, obstipation, obstruction. - Data Points Medications Given: Discontinued Medications Diphenhydramine HCl (Benadryl Injection) 25 mg IM ONCE ONE Stop: 07/11/18 10:38 Last Admin: 07/11/18 10:42 Dose: 25 mg Glycerin (Glycerin Adult) 1 each AR ONCE ONE Stop: 07/11/18 10:10 Last Admin: 07/11/18 10:44 Dose: 1 each Haloperidol Lactate (Haldol Injection) 2.5 mg IM EDNOW ONE Stop: 07/11/18 10:37 Last Admin: 07/11/18 10:42 Dose: 2.5 mg Magnesium Citrate (Magnesium Citrate) 300 ml PO ONCE ONE Stop: 07/11/18 10:10 Last Admin: 07/11/18 10:44 Dose: 1 btl Ondansetron HCl (Zofran Odt) 4 mg PO EDNOW ONE Stop: 07/11/18 10:10 Last Admin: 07/11/18 10:18 Dose: 4 mg Promethazine HCl (Phenergan) 12.5 mg PO ONCE ONE Stop: 07/11/18 10:10 Last Admin: 07/11/18 10:18 Dose: 12.5 mg Departure - Departure Disposition: Home, Routine, Self-Care Clinical Impression: Drug induced constipation Condition: Good Instructions: Polyethylene Glycol 3350 (By mouth), Constipation (ED) Additional Instructions: Consume a minimum of 8-10 glasses of water or electrolyte fluid replacement drinks that include Gatorade, Powerade, Pedialyte. Eat a clear liquid diet for the next 48 hours and then slowly advance as tolerated. Take MiraLax daily x7 days for constipation and then daily as needed for constipation.. Referrals: [facility],. [Clinic] - As per Instructions Prescriptions: Ondansetron Odt [Zofran Odt 4 mg (*)] 4 mg PO Q4 PRN #12 tab PRN Reason: Nausea/Vomiting, Use 1st Polyethylene Glycol 3350 [Miralax 17 gm (*)] 17 gm PO DAILY #30 pkt
[2018-07-11] MEDS ORDERED: PROMETHAZINE HCL 25 MG TAB PO ONE (10:09)
[2018-07-11] MEDS ORDERED: MAGNESIUM CITRATE 300 ML BOTTLE PO ONE (10:09)
[2018-07-11] MEDS ORDERED: GLYCERIN ADULT 1 EACH SUPP PR ONE (10:09)
[2018-07-11] MEDS ORDERED: ONDANSETRON DISINTEGRATING 4 MG TAB PO ONE (10:09)
[2018-07-11] MEDS ORDERED: HALOPERIDOL LACT 5 MG/ML INJ IM ONE (10:36)
[2018-07-11 11:26] VITALS: BP 134/78
== END 2018-07-11 11:26 | disposition home or self-care (01) ==
DX: K59.03 Drug induced constipation (principal)
CPT/HCPCS: J1200; J1630

== ENCOUNTER 2018-07-12 13:10 | Emergency (ER) | payer MEDICAID ==
[2018-07-12] MEDS ORDERED: NS 1,000 ML IV ONE (13:20)
--- NOTE | 2018-07-12 13:20 | EDPHY ---
H & P Stated Complaint: constipation, abdominal pain Time Seen by Provider: 07/12/18 13:20 HPI/ROS: HPI: This is a 57-year-old female who presents with Chief Complaint: No bowel movement x4 days Location: GI, abdomen Quality: No bowel movement Duration: 4 days Signs and Symptoms: no fever, no nausea, no vomiting, no hematemesis, no blood in stool, no abdominal bloating, no diarrhea, no back pain, no urinary symptoms , no vaginal bleeding/discharge, no indigestion, no chest pain, no shortness of breath Timing: Acute on chronic Severity: Moderate Context: Patient reports that she has a propensity to constipation as she takes Seroquel for her bipolar disease presents to the emergency room for the 2nd time in 24 hr complaining of no bowel movement x4 days. Patient reports that she no longer feels nauseous and has not vomited since being seen in the emergency room yesterday. She used the glycerin suppository and took the full bottle of magnesium citrate yesterday afternoon and still has not had a bowel movement. Patient has ate breakfast and lunch without difficulty. Patient reports generalized abdominal cramping but denies actual abdominal pain. Patient reports that she only drinks coffee during the day and no water. She is passing gas from below. Modifying Factors: Magnesium citrate, glycerin suppository without relief Comment: ROS: A comprehensive 10 system review of systems is otherwise negative aside from elements mentioned in the history of present illness. MEDICAL/SURGICAL/SOCIAL HISTORY: Medical history: Bipolar disorder, anxiety disorder, irritable bowel syndrome Surgical history: Denies Social history: Disabled. Lives with her mother. Heavy tobacco user. Family history noncontributory. CONSTITUTIONAL: Overweight, nontoxic-appearing, talkative adult white female, awake and alert, no obvious distress HEENT: Atraumatic and normocephalic, PERRL, EOMI. Nares patent; no rhinorrhea; no nasal mucosal edema. Tympanic membranes clear. Oropharynx clear, no exudate and moist pink mucosa. Airway patent. No lymphadenopathy. No meningismus. Cardiovascular: Normal S1/S2, tachycardia regular rhythm, without murmur rub or gallop. PULMONARY/CHEST: Symmetrical and nontender. Clear to auscultation bilaterally. Good air movement. No accessory muscle usage. ABDOMEN: Soft, protuberant, mild nonspecific periumbilical tenderness, no rebound, no guarding, no peritoneal signs, no masses or organomegaly. No CVAT. Bowel sounds heard x4 quadrants. EXTREMITIES: 2/2 pulses, strength 5/5, no deformities, no clubbing, no cyanosis or edema. NEUROLOGICAL: no focal neuro deficits. GCS 15. SKIN: Warm and dry, no erythema. no rash. Good capillary refill. Source: Patient, Old records Exam Limitations: No limitations - Personal History Current Tetanus/Diphtheria Vaccine: No Current Tetanus Diphtheria and Acellular Pertussis (TDAP): No - Medical/Surgical History Hx Asthma: No Hx Chronic Respiratory Disease: No Hx Diabetes: No Hx Cardiac Disease: No Hx Renal Disease: No Hx Cirrhosis: No Hx Alcoholism: No Hx HIV/AIDS: No Hx Splenectomy or Spleen Trauma: No Other PMH: Bipolar, IBS anxiety - Social History Smoking Status: Heavy smoker Constitutional: Initial Vital Signs Temperature (C) 36.4 C 07/12/18 13:11 Heart Rate 113 H 07/12/18 13:11 Respiratory Rate 18 07/12/18 13:11 Blood Pressure 109/77 07/12/18 13:11 O2 Sat (%) 94 07/12/18 13:11 O2 Delivery Mode Room Air Allergies/Adverse Reactions: No Known Allergies Allergy (Verified 07/12/18 13:14) Home Medications: Medication Instructions Recorded Elavil 01/10/18 Seroquel 01/10/18 Omeprazole 40 mg PO DAILY #30 capsule. 02/24/18 Magnesium Citrate [Magnesium 300 ml PO ONCE #1 bottle 07/12/18 Citrate 300 ml (*)] Medical Decision Making - Diagnostics Imaging Results: Imaging Impressions Abdomen CT 07/12/18 13:20 Impression: 1. Negative. No localized intraabdominal inflammatory process, lymphadenopathy , or mass. 2. Normal bowel and appendix. Findings discussed with Physician Customizer, Ramandeep Santiago PA-C, on July 12, 2018 at 1511. ED Course/Re-evaluation: Vital signs reviewed and show mild tachycardia. Reviewed chart from yesterday including abdominal x-ray that showed moderate constipation but no signs of obstruction. IV access, laboratory studies, urinalysis, CT abdomen and pelvis scan ordered Given 1 L normal saline 1435: Laboratory studies reviewed. WBC 19 K with left shift, creatinine 0.9, glucose 148, potassium 5.9, BUN 26. No signs of anemia/platelet dysfunction/RAHUL/ elevated LFTs/pancreatitis. 1503: Called by Dr. Monreal who reports CT abdomen and pelvis scan shows no signs of obstruction, ileus, pancreatitis, appendicitis, diverticulitis, perforation. + moderate constipation noted 1503: Still waiting on urine sample. 1545: Urinalysis shows increased specific gravity but no signs of infection. Will give Lokelma 10 mg for potassium level 5.9 with increased BUN secondary to poor oral intake which will also help with constipation issues. No signs of acute kidney injury Patient is asking to drink water and provided lunch at this time by nursing staff. Abdomen is soft and nontender. I am not sure where the leukocytosis is coming from but I do not see any casa signs of infection at this time. This may be reactive. Patient will be discharged home with magnesium citrate and follow-up with primary care provider in 2-3 days for repeat CBC and BMP. This patient was seen under the supervision of my secondary supervising physician. I evaluated care for this patient with attending. Differential Diagnosis: Abdominal pain including but not limited to appendicitis, cholecystitis, gastritis and urinary tract infection. - Data Points Laboratory Results: Laboratory Results 07/12/18 14:24 07/12/18 14:24 07/12/18 07/12/18 07/12/18 15:05 14:24 14:24 WBC RBC Hgb POC Hgb Hct POC Hct MCV MCH MCHC RDW Plt Count MPV Neut % (Auto) Lymph % (Auto) [place] % (Auto) Eos % (Auto) Baso % (Auto) Nucleat RBC Rel Count Absolute Neuts (auto) Absolute Lymphs (auto) Absolute Monos (auto) Absolute Eos (auto) Absolute Basos (auto) Absolute Nucleated RBC Immature Gran % Immature Gran # POC Sodium Sodium 137 mEq/L mEq/L (135-145) POC Potassium Potassium 5.9 mEq/L H mEq/L (3.5-5.2) POC Chloride Chloride 106 mEq/L mEq/L (97-110) Carbon Dioxide 18 mEq/l L mEq/l (22-31) POC Total CO2 Anion Gap 13 mEq/L mEq/L (6-14) POC BUN BUN 26 mg/dL H mg/dL (7-23) Creatinine 0.9 mg/dL mg/dL (0.6-1.0) POC Creatinine Estimated GFR > 60 Glucose 139 mg/dL H mg/dL (70-100) POC Glucose Calcium 9.3 mg/dL mg/dL (8.5-10.4) Total Bilirubin 0.9 mg/dL mg/dL (0.1-1.4) Conjugated Bilirubin 0.8 mg/dL H mg/dL (0.0-0.5) Unconjugated Bilirubin 0.1 mg/dL mg/dL (0.0-1.1) AST 45 IU/L IU/L (14-46) ALT 28 IU/L IU/L (9-52) Alkaline Phosphatase 136 IU/L H IU/L (38-126) Total Protein 7.8 g/dL g/dL (6.3-8.2) Albumin 4.5 g/dL g/dL (3.5-5.0) Lipase 231 IU/L IU/L (23-300) Beta HCG, Qual NEGATIVE Specimen Hemolysis 249 Urine Color YELLOW Urine Appearance CLEAR Urine pH 7.0 (5.0-7.5) Ur Specific [place] > 1.035 H (1.002-1.030) Urine Protein NEGATIVE (NEGATIVE) Urine Ketones NEGATIVE (NEGATIVE) Urine Blood NEGATIVE (NEGATIVE) Urine Nitrate NEGATIVE (NEGATIVE) Urine Bilirubin NEGATIVE (NEGATIVE) Urine Urobilinogen NEGATIVE EU EU (0.2-1.0) Ur Leukocyte Esterase NEGATIVE (NEGATIVE) Urine Glucose NEGATIVE (NEGATIVE) 07/12/18 07/12/18 14:24 14:11 WBC 18.85 10^3/uL H 10^3/uL (3.80-9.50) RBC 4.77 10^6/uL 10^6/uL (4.18-5.33) Hgb 14.2 g/dL g/dL (12.6-16.3) POC Hgb 15.0 gm/dL gm/dL (12.6-16.3) Hct 41.9 % % (38.0-47.0) POC Hct 44 % % (38-47) MCV 87.8 fL fL (81.5-99.8) MCH 29.8 pg pg (27.9-34.1) MCHC 33.9 g/dL g/dL (32.4-36.7) RDW 16.2 % H % (11.5-15.2) Plt Count 249 10^3/uL 10^3/uL (150-400) MPV 11.2 fL fL (8.7-11.7) Neut % (Auto) 83.1 % H % (39.3-74.2) Lymph % (Auto) 12.0 % L % (15.0-45.0) [place] % (Auto) 4.1 % L % (4.5-13.0) Eos % (Auto) 0.1 % L % (0.6-7.6) Baso % (Auto) 0.2 % L % (0.3-1.7) Nucleat RBC Rel Count 0.0 % % (0.0-0.2) Absolute Neuts (auto) 15.66 10^3/uL H 10^3/uL (1.70-6.50) Absolute Lymphs (auto) 2.27 10^3/uL 10^3/uL (1.00-3.00) Absolute Monos (auto) 0.77 10^3/uL 10^3/uL (0.30-0.80) Absolute Eos (auto) 0.02 10^3/uL L 10^3/uL (0.03-0.40) Absolute Basos (auto) 0.03 10^3/uL 10^3/uL (0.02-0.10) Absolute Nucleated RBC 0.00 10^3/uL 10^3/uL (0-0.01) Immature Gran % 0.5 % % (0.0-1.1) Immature Gran # 0.10 10^3/uL 10^3/uL (0.00-0.10) POC Sodium 140 mEq/L mEq/L (135-145) Sodium POC Potassium 4.7 mEq/L mEq/L (3.3-5.0) Potassium POC Chloride 106 mEq/L mEq/L (97-110) Chloride Carbon Dioxide POC Total CO2 19 mEq/L L mEq/L (22-31) Anion Gap POC BUN 31 mg/dL H mg/dL (7-23) BUN Creatinine POC Creatinine 0.9 mg/dL mg/dL (0.6-1.0) Estimated GFR Glucose POC Glucose 148 mg/dL H mg/dL (70-100) Calcium Total Bilirubin Conjugated Bilirubin Unconjugated Bilirubin AST ALT Alkaline Phosphatase Total Protein Albumin Lipase Beta HCG, Qual Specimen Hemolysis Urine Color Urine Appearance Urine pH Ur Specific [place] Urine Protein Urine Ketones Urine Blood Urine Nitrate Urine Bilirubin Urine Urobilinogen Ur Leukocyte Esterase Urine Glucose Medications Given: Discontinued Medications Sodium Chloride (Ns) 1,000 mls @ 0 mls/hr IV EDNOW ONE; Wide Open PRN Reason: Protocol Stop: 07/12/18 13:21 Last Admin: 07/12/18 14:05 Dose: 1,000 mls Point of Care Test Results: Chemistry 07/12/18 14:11 POC Sodium 140 mEq/L mEq/L (135-145) POC Potassium 4.7 mEq/L mEq/L (3.3-5.0) POC Chloride 106 mEq/L mEq/L (97-110) POC Total CO2 19 mEq/L L mEq/L (22-31) POC BUN 31 mg/dL H mg/dL (7-23) POC Creatinine 0.9 mg/dL mg/dL (0.6-1.0) POC Glucose 148 mg/dL H mg/dL (70-100) ISTAT H&H 07/12/18 14:11 POC Hgb 15.0 gm/dL gm/dL (12.6-16.3) POC Hct 44 % % (38-47) Departure - Departure Disposition: Home, Routine, Self-Care Clinical Impression: Constipation by delayed colonic transit, Acute hyperkalemia, Mild dehydration Leukocytosis Qualifiers: Leukocytosis type: unspecified Qualified Code(s): D72.829 - Elevated white blood cell count, unspecified Condition: Good Instructions: Constipation (ED), High Fiber Diet (ED), Dehydration (ED) Additional Instructions: Consume a minimum of 10-12 glasses of water or electrolyte fluid replacement drinks that include Gatorade, Powerade, Pedialyte. Eat a clear liquid diet for the next 48 hours and then slowly advance as tolerated. Take magnesium citrate x1 upon arrival home. Take MiraLax daily for the next 7 days. Follow-up with primary care provider on Saturday or Saturday to have repeat laboratory studies and interval change of white blood cell count and potassium level. Referrals: Nanyc Holman [Primary Care Provider] - 2-3 days, call for appt. Prescriptions: Magnesium Citrate [Magnesium Citrate 300 ml (*)] 300 ml PO ONCE #1 bottle
[2018-07-12] MEDS ORDERED: IOPAMIDOL (ISOVUE-300) 100 ML BTL ONE (14:29)
[2018-07-12 14:31] LABS: PLATELET COUNT 249 10^3/uL (150-400)
[2018-07-12 15:35] VITALS: BP 121/73
[2018-07-12] MEDS ORDERED: SODIUM ZIRCONIUM CYCLOSILICATE 10 GM PACKET PO ONE (15:44)
== END 2018-07-12 16:12 | disposition home or self-care (01) ==
DX: K59.01 Slow transit constipation (principal); E87.5 Hyperkalemia; E86.0 Dehydration; D72.829 Elevated white blood cell count, unspecified
CPT/HCPCS: 82435-PO; 82565-PO; 82947-PO; 84132-PO; 84295-PO; 84520-PO; 85014-ER; Q9967

== ENCOUNTER 2018-07-15 09:30 | Emergency (ER) | payer MEDICAID ==
[2018-07-15] MEDS ORDERED: NS 1,000 ML IV ONE (10:16)
[2018-07-15] MEDS ORDERED: ONDANSETRON 4 MG/2 ML VIAL IVP ONE (10:16)
--- NOTE | 2018-07-15 10:17 | EDPHY ---
H & P Time Seen by Provider: 07/15/18 10:03 HPI/ROS: Chief complaint. Abdominal pain HPI. 57-year-old female presents to the emergency department with nausea vomiting and some diarrhea. Some diffuse crampy abdominal pain. She was seen in our emergency department on July 11 for abdominal pain. Plain x-ray showed constipation. She was given glycerin suppository and magnesium citrate and then had a bowel movement. She was then seen again on July 12 and said she had had no bowel movement for 4 days. She had an abdominal CT that was normal. Now she notes she has had slight diarrhea. Continues to have some nausea vomiting. Pain seems to be worse this morning. No fever or chest pain or shortness of breath. No urinary symptoms. ROS 10 systems were reviewed and negative with the exception of the elements mentioned in the history of present illness Past Medical/Surgical History: Bipolar, IBS, anxiety Social History: Single, daily smoker, no alcohol Smoking Status: Heavy smoker Physical Exam: General Appearance: Alert well-developed female mild distress vital signs are stable Eyes: Pupils equal and round no pallor or injection. ENT, Mouth: Mucous membranes are moist. Respiratory: There are no retractions, lungs are clear to auscultation. Cardiovascular: Regular rate and rhythm. Gastrointestinal: Abdomen is soft and diffusely tender. Normal bowel sounds. No masses. Neurological: Awake and alert, sensory and motor exams grossly normal. Skin: Warm and dry, no rashes. Musculoskeletal: Neck is supple nontender. Extremities symmetrical, full range of motion. Psychiatric: Patient is oriented X 3, there is no agitation. Constitutional: Initial Vital Signs Temperature (C) 36.9 C 07/15/18 09:36 Heart Rate 83 07/15/18 09:36 Respiratory Rate 18 07/15/18 09:36 Blood Pressure 153/93 H 07/15/18 09:36 O2 Sat (%) 99 07/15/18 09:36 O2 Delivery Mode Room Air Allergies/Adverse Reactions: No Known Allergies Allergy (Verified 07/15/18 09:36) Home Medications: Medication Instructions Recorded Elavil 01/10/18 Seroquel 01/10/18 Omeprazole 40 mg PO DAILY #30 capsule. 02/24/18 Magnesium Citrate [Magnesium 300 ml PO ONCE #1 bottle 07/12/18 Citrate 300 ml (*)] Promethazine HCl [Phenergan 25mg 25 mg PO Q4-6PRN PRN #10 tab 07/15/18 (*)] Medical Decision Making - Diagnostics Imaging Results: Imaging Impressions Abdomen X-Ray 07/15/18 10:16 Impression: 1. No pneumoperitoneum or evidence of bowel obstruction. 2. Improved mild constipation since 4 days prior. X-ray abdomen shows no evidence of free air or air-fluid levels. Improved constipation compared with x-ray several days ago Procedures: IV Haldol, Benadryl, Phenergan P.o. Phenergan ED Course/Re-evaluation: On re-evaluation patient is stable. Patient and I discussed treatment plan including criteria for return importance of follow-up and further evaluation. She expresses understanding and agreement Patient continues to ask me for pain medication and Valium. Differential Diagnosis: Patient with constipation and elevated white blood cell count several days ago. Relatively normal white blood cell count today. No evidence of free air or air-fluid levels. Resolving constipation. Vomiting has been controlled without emesis in the emergency department - Data Points Laboratory Results: Laboratory Results 07/15/18 10:20 07/15/18 10:20 07/15/18 07/15/18 10:20 10:20 WBC 10.82 10^3/uL H 10^3/uL (3.80-9.50) RBC 4.53 10^6/uL 10^6/uL (4.18-5.33) Hgb 13.5 g/dL g/dL (12.6-16.3) Hct 41.5 % % (38.0-47.0) MCV 91.6 fL fL (81.5-99.8) MCH 29.8 pg pg (27.9-34.1) MCHC 32.5 g/dL g/dL (32.4-36.7) RDW 15.4 % H % (11.5-15.2) Plt Count 215 10^3/uL 10^3/uL (150-400) MPV 10.9 fL fL (8.7-11.7) Neut % (Auto) 75.8 % H % (39.3-74.2) Lymph % (Auto) 15.2 % % (15.0-45.0) [place] % (Auto) 6.6 % % (4.5-13.0) Eos % (Auto) 1.4 % % (0.6-7.6) Baso % (Auto) 0.5 % % (0.3-1.7) Nucleat RBC Rel Count 0.0 % % (0.0-0.2) Absolute Neuts (auto) 8.21 10^3/uL H 10^3/uL (1.70-6.50) Absolute Lymphs (auto) 1.65 10^3/uL 10^3/uL (1.00-3.00) Absolute Monos (auto) 0.71 10^3/uL 10^3/uL (0.30-0.80) Absolute Eos (auto) 0.15 10^3/uL 10^3/uL (0.03-0.40) Absolute Basos (auto) 0.05 10^3/uL 10^3/uL (0.02-0.10) Absolute Nucleated RBC 0.00 10^3/uL 10^3/uL (0-0.01) Immature Gran % 0.5 % % (0.0-1.1) Immature Gran # 0.05 10^3/uL 10^3/uL (0.00-0.10) Sodium 137 mEq/L mEq/L (135-145) Potassium 4.6 mEq/L mEq/L (3.5-5.2) Chloride 106 mEq/L mEq/L (97-110) Carbon Dioxide 19 mEq/l L mEq/l (22-31) Anion Gap 12 mEq/L mEq/L (6-14) BUN 23 mg/dL mg/dL (7-23) Creatinine 0.8 mg/dL mg/dL (0.6-1.0) Estimated GFR > 60 Glucose 94 mg/dL mg/dL (70-100) Calcium 9.5 mg/dL mg/dL (8.5-10.4) Medications Given: Discontinued Medications Diphenhydramine HCl (Benadryl Injection) 25 mg IVP EDNOW ONE Stop: 07/15/18 10:22 Last Admin: 07/15/18 10:34 Dose: 25 mg Haloperidol Lactate (Haldol Injection) 2.5 mg IVP EDNOW ONE Stop: 07/15/18 10:22 Last Admin: 07/15/18 10:34 Dose: 2.5 mg Sodium Chloride (Ns) 1,000 mls @ 0 mls/hr IV EDNOW ONE; Wide Open PRN Reason: Protocol Stop: 07/15/18 10:17 Last Admin: 07/15/18 10:34 Dose: 1,000 mls Ondansetron HCl (Zofran) 4 mg IVP EDNOW ONE Stop: 07/15/18 10:17 Last Admin: 07/15/18 10:34 Dose: 4 mg Promethazine HCl (Phenergan) 12.5 mg IVP EDNOW ONE Stop: 07/15/18 11:04 Last Admin: 07/15/18 11:08 Dose: 12.5 mg Promethazine HCl (Phenergan) 25 mg PO EDNOW ONE Stop: 07/15/18 13:07 Last Admin: 07/15/18 13:12 Dose: 25 mg Departure - Departure Disposition: Home, Routine, Self-Care Clinical Impression: Vomiting Condition: Good Instructions: Acute Nausea and Vomiting (ED) Additional Instructions: Frequent, small sips fluids well nauseated. Gradual diet advancement. Phenergan as needed for nausea and vomiting Return for worsening symptoms Follow-up with your regular physician in the next 1-2 days without fail Referrals: Nancy Holman [Non Staff and Non MD] - 1-2 days without fail Prescriptions: Promethazine HCl [Phenergan 25mg (*)] 25 mg PO Q4-6PRN PRN #10 tab PRN Reason: Nausea/Vomiting, Use 1st
[2018-07-15] MEDS ORDERED: HALOPERIDOL LACT 5 MG/ML INJ IVP ONE (10:21)
[2018-07-15 10:30] LABS: PLATELET COUNT 215 10^3/uL (150-400)
[2018-07-15] MEDS ORDERED: PROMETHAZINE HCL 25 MG/ML INJ IVP ONE (11:03)
[2018-07-15] MEDS ORDERED: PROMETHAZINE HCL 25 MG TAB PO ONE (13:06)
[2018-07-15 13:26] VITALS: BP 147/107
--- NOTE | 2018-07-15 18:31 | ASMTCMCOM ---
CM Note CM Note Notes: Pt presented to the ED through triage for N/V and abdominal pain. Pt was in the ED on 07/11 & 07/12 for similar reasons. Pt medically assessed and ready for discharge to the ED. CM spoke w/pt at bedside. Pt is upset about not receiving any valium or pain medication. This CM explained to her that pt will need to followup with her PCP Nancy Rush at [facility]. Pt called her father Gianluca to come pick her up. Pt initially wanted to set up her own followup appt w/PC but then later asked if CM could help get her in this week. This CM called PC and spoke w/Marianne. Pt scheduled to follow up w/Nancy Rush tomorrow 07/16/18 at 11am (arrival time 10:40am). CM wrote this on pt's DC paperwork. Pt appreciative and states she will go to the appt. Pt states she has not been taking the hydroxyzine that was prescribed to her at but that she has been taking her omeprazole as directed. Pt states she did followup with GI of [facility] in the past. Pt also states she has been following up with P and has an appt next week. Pt was provided [facility] paperwork during this CM's last interaction with her on 05/24/18. This CM to send another referral to [facility]. CM available for further assistance if needed. Date Signed: 07/15/2018 06:30 PM Electronically Signed By:Estefany Sebastian RN
== END 2018-07-15 13:31 | disposition home or self-care (01) ==
DX: R11.2 Nausea with vomiting, unspecified (principal); K58.9 Irritable bowel syndrome, unspecified; E86.9 Volume depletion, unspecified
CPT/HCPCS: 96374; J1200; J1630; J2405; J2550